=== PATIENT | female | born 1960 | race Two or more races ===

== ENCOUNTER 2024-12-17 16:25 | Emergency (ER) | payer MEDICAID, OTHER ==
[~2024-12-17] VITALS: Ht 162.6 cm; Wt 46.6 kg
--- NOTE | 2024-12-17 17:18 | DVH ---
COMPUTERIZED TOMOGRAPHY ABDOMEN AND PELVIS WITHOUT CONTRAST REASON FOR EXAM: flank pain COMPARISON: None TECHNIQUE: Spiral scans were acquired from the diaphragm to the symphysis pubis without intravenous c ontrast administration. 2-D coronal and sagittal reformatted images were provided. Radiation optimiza tion: All CT scans at this facility use at least one of these dose optimization techniques: Automated exposure control mA and/or kV adjustment per patient size (includes targeted exams where dose is mat ched to clinical indication) or iterative reconstruction. RADIATION DOSE: CTDI: 5.2 mGy DLP: 237.67 mGy-cm FINDINGS: The visualized lung bases are grossly clear. There is no pleural effusion. There is no pericardial e ffusion. The spleen is not enlarged. The liver is normal in size and contour. Evaluation of the abdo saud organs is suboptimal in the absence of intravenous contrast. Unenhanced appearance of the pancr eas is grossly unremarkable. No calcified gallstone is identified. The adrenal glands are normal. The kidneys are similar in size. There is no hydronephrosis of either kidney. No renal, ureteral, or bl adder calculus is identified. There is no abdominal aortic aneurysm. No free fluid is identified in t he abdomen or pelvis. There is no pathologic lymphadenopathy by size criteria. The uterus and ovari es are within normal limits. There is no pathologic distention of the small bowel. The colonic stool burden is moderate. The appendix is normal. The urinary bladder is grossly unremarkable. No acute os seous abnormality is identified. IMPRESSION: Moderate colonic stool burden. Correlate clinically for constipation. Normal appendix No renal, ureteral, or bladder calculus is identified. No hydronephrosis of either kidney.
--- NOTE | 2024-12-17 17:24 | ED.PDOC ---
General HPI Comments HPI: PMHx: Scoliosis, Prurigo Nodularis, Sclerosis PSHx: Double Bunectomy, Breast Augmentation SHx: Denies alcohol, tobacco use, or marijuana use Initial Vital Signs Temp: 97.7F RR: 16 SpO2: 96% HR: 80 BP: 146/86 HPI: Poor Historian. 64-year-old female presents to emergency department for acute on chronic right flank pain. She has a right flank pain with multiple kidney infections for the last two years. The patient has been on multiple antibiotics. She is currently on round two of Keflex. The patient denies any urinary symptoms. She complains of some mild right flank pain and right groin pain. She called 24 hour hotline doctor service who advised her to go to the ER. Patient denies any fever REVIEW OF SYSTEMS: CONSTITUTIONAL: Denies acute: fever, diaphoresis, chills, HEAD: Denies acute: headache, photophobia Eyes: Denies acute: Double vision, vision loss, eye pain, eye discharge. EARS: Denies acute: tinnitus, hearing loss, ear discharge, ear pain, THROAT: Denies acute: sore throat, swelling, difficulty swallowing , pain with swallowing, change in voice. NECK: Denies acute: neck pain, neck swelling, stiff neck. HEART: Denies acute : chest pain, palpitations, LUNGS: Denies acute: SOB, wheezing, cough, hemoptysis ABDOMEN: Denies acute: Vomiting, diarrhea, melena , hematemesis, hematochezia SKIN: Denies acute: rash, redness, lesions, itchiness. EXTREMITIES: Denies acute: calf pain, numbness, tingling, weakness, denies pain in extremity. Denies acute: Low back pain. Neuro: Denies acute: focal neurological deficit, motor or sensory focal neurological deficit, tremors, seizure like activity, confusion, dizziness, change in mental status, loss of bowel or bladder function, cauda equina like symptoms. : Denies acute: dysuria, hematuria, increase in urinary frequency. PSYCH: Denies acute: hallucination, suicidal ideation, homicidal ideation. FEMALE: Denies acute: abnormal vaginal bleeding, foul odor, unusual discharge. PHYSICAL EXAM: General: -----mild---acute distress, awake and alert. Head: normocephalic, atraumatic. Neck: supple, trachea is midline, no swelling. Throat: Normal phonation. Eyes:, no erythema, no purulent discharge, no proptosis, no icterus. Heart: regular rate, regular rhythm, no significant murmur appreciated. Lungs: no apparent respiratory distress, Able to speak in full sentences. No wheezing, no rhonchi, no crackles. No stridors Clear to auscultation bilaterally. Abdomen: Right lower quadrant tender to palpation, non distended, soft, no guarding, no rebound, + bowel sounds. Neuro: Awake, Alert, oriented to name, self, situation, follows commands GCS=15. Speech is normal. Skin: no petechia, no purpura, no cyanosis, non-pale, not jaundice. Lower extremities: --no - Pitting edema no deformity, no focal swelling, no calf TTP. Makes eye contact. moves all four extremities. Face: no apparent facial droop. Right CVA tenderness to percussion Ambulating in the ED independently. ED COURSE: DISCLAIMER: This medical document was created using an electronic medical record system with voice recognition software and computerized dictation system. Although this document has been carefully reviewed, there might still be some phonetic and typographical errors. Occasional wrong-word or "sound-alike" substitutions may have occurred due to the inherent limitations of voice recognition software. These areas are purely typographical due to imperfections of the software programs and do not reflect any compromise in the patient's medical care. Please read the chart carefully and recognize, using context, where these substitutions have occurred. Chief Complaint: Flank Pain Time Seen by MD: 17:05 Reviewed notes: Medications, Allergies Allergies: Coded Allergies: NO KNOWN ALLERGIES (Unverified , 12/17/24) Information Source: Patient Past Medical History INVESTIGATIONS CONSULTANT History: Denies all INVESTIGATIONS CONSULTANT Hx Family History Family History: Reviewed,noncontributory to illness Social History Smoker: Non-Smoker Alcohol: Denies ETOH Use Drugs: Denies Drug Use Lives In: Home Was a procedure done? Was a procedure done?: No X-Ray, Labs, Meds, VS Vital Signs Date Time Temp Pulse Resp B/P (MAP) Pulse Ox O2 Delivery O2 Flow Rate FiO2 12/17/24 17:44 98.7 8 16 141/75 (97) 100 98.7 12/17/24 17:44 81 16 100 Room Air 12/17/24 17:35 74 20 98 Room Air* 0 21 12/17/24 17:34 97.7 80 16 146/86 (106) 96 97.7 Lab Test 12/17/24 17:38 12/17/24 17:10 Range/Units White Blood Count 4.3 L 4.4-10.8 10^3/uL Red Blood Count 4.16 4.0-5.20 10^6/uL Hemoglobin 13.4 12.2-16.2 g/dL Hematocrit 39.6 36.0-46.0 % Mean Corpuscular Volume 95.3 80.0-100.0 fL Mean Corpuscular Hemoglobin 32.3 H 28.0-32.0 pg Mean Corpuscular Hemoglobin Concent 33.9 32.0-36.0 g/dL Red Cell Distribution Width 12.0 11.8-14.3 % Platelet Count 314 140-450 10^3/uL Mean Platelet Volume 7.0 6.9-10.8 fL Neutrophils (%) (Auto) 64.0 37.0-80.0 % Lymphocytes (%) (Auto) 22.6 10.0-50.0 % Monocytes (%) (Auto) 8.7 0.0-12.0 % Eosinophils (%) (Auto) 4.1 0.0-7.0 % Basophils (%) (Auto) 0.6 0.0-2.0 % Neutrophils # (Auto) 2.7 1.6-8.6 10 ^3/uL Lymphocytes # (Auto) 1.0 0.4-5.4 10 ^3/uL Monocytes # (Auto) 0.4 0-1.3 10 ^3/uL Eosinophils # (Auto) 0.2 0-0.8 10 ^3/uL Basophils # (Auto) 0 0-0.2 10 ^3/uL Nucleated Red Blood Cells 0.1 % Sodium Level 136 136-145 mmol/L Potassium Level 4.0 3.5-5.1 mmol/L Chloride Level 101 98-107 mmol/L Carbon Dioxide Level 27 20-31 mmol/L Anion Gap 8 5-15 Blood Urea Nitrogen 9 9-23 mg/dL Creatinine 0.77 0.550-1.02 mg/dL Glomerular Filtration Rate Calc 87 >90 mL/min BUN/Creatinine Ratio 11.7 10.0-20.0 Serum Glucose 98 74-106 mg/dL Lactic Acid Level 0.8 0.4-2.0 mmol/L Calcium Level 9.8 8.7-10.4 mg/dL Total Bilirubin 0.5 0.2-1.0 mg/dL Aspartate Amino Transferase (AST) 23 13-40 U/L Alanine Aminotransferase (ALT) Pending Alkaline Phosphatase 71 46-116 U/L Troponin I High Sensitivity < 3 L </=34 ng/L Total Protein 7.3 5.7-8.2 g/dL Albumin 5.1 H 3.2-4.8 g/dL Urine Color Colorless Yellow Urine Clarity Clear Clear Urine pH 6.5 5.0-9.0 Urine Specific [place] 1.003 1.001-1.035 Urine Protein Negative Negative Urine Ketones Negative Negative Urine Blood Negative Negative /uL Urine Nitrite Negative Negative Urine Bilirubin Negative Negative Urine Urobilinogen Normal Negative mg/dL Urine Leukocyte Esterase 2+ Negative /uL Urine RBC <1 0 - 4 /hpf Urine Microscopic WBC 4 0-5 /HPF Urine Squamous Epithelial Cells None seen <5 /hpf Urine Bacteria None seen None Seen /hpf Urine Glucose Normal Normal mg/dL Current Medications Medications (Trade) Dose Ordered Sig/Jason Route Start Time Stop Time Status Last Admin Sodium Chloride 1,000 ml @ 1,000 mls/hr Q1H ONCE IV 12/17/24 17:30 12/17/24 18:29 DC 12/17/24 17:45 Ondansetron HCl (Zofran) 8 mg ONCE ONCE IV 12/17/24 17:30 12/17/24 17:31 DC 12/17/24 17:44 Ceftriaxone Sodium 50 ml @ 100 mls/hr ONCE ONCE IV 12/17/24 17:30 12/17/24 17:59 DC 12/17/24 17:[address] [address] Ph: [phone] DIAGNOSTIC IMAGING Diagnostic Imaging Report : [id number] Signed PATIENT: NURIA RIVAS ACCT: [id number] UNIT: [id number] : 1960 LOC: ER ROOM / BED: / AGE / SEX: 64 / F ADM STATUS: REG ER SERVICE [id number] ORDERING PHYSICIAN: TAMARA MARTINEZ DO PROCEDURE(s): ABPL - CT AB PEL WO CON-NO ORAL OR IV REASON: flank pain ORDER NUMBER(s): [id number], ACCESSION NUMBER(s): [id number] COMPUTERIZED TOMOGRAPHY ABDOMEN AND PELVIS WITHOUT CONTRAST REASON FOR EXAM: flank pain COMPARISON: None TECHNIQUE: Spiral scans were acquired from the diaphragm to the symphysis pubis without intravenous contrast administration. 2-D coronal and sagittal reformatted images were provided. Radiation optimization: All CT scans at this facility use at least one of these dose optimization techniques: Automated exposure control mA and/or kV adjustment per patient size (includes targeted exams where dose is matched to clinical indication) or iterative reconstruction. RADIATION DOSE: CTDI: 5.2 mGy DLP: 237.67 mGy-cm FINDINGS: The visualized lung bases are grossly clear. There is no pleural effusion. There is no pericardial effusion. The spleen is not enlarged. The liver is normal in size and contour. Evaluation of the abdominal organs is suboptimal in the absence of intravenous contrast. Unenhanced appearance of the pancreas is grossly unremarkable. No calcified gallstone is identified. The adrenal glands are normal. The kidneys are similar in size. There is no hydronephrosis of either kidney. No renal, ureteral, or bladder calculus is identified. There is no abdominal aortic aneurysm. No free fluid is identified in the abdomen or pelvis. There is no pathologic lymphadenopathy by size criteria. The uterus and ovaries are within normal limits. There is no pathologic distention of the small bowel. The colonic stool burden is moderate. The appendix is normal. The urinary bladder is grossly unremarkable. No acute osseous abnormality is identi fied. IMPRESSION: Moderate colonic stool burden. Correlate clinically for constipation. Normal appendix No renal, ureteral, or bladder calculus is identified. No hydronephrosis of either kidney. Reevaluation 1ST: Improved Patient Education/Counseling: Diagnosis, Treatment Family Education/Counseling: No Family Present Departure 1 Departure Time of Disposition: 18:41 Impression: Primary Impression: Right flank pain Disposition: 01 HOME / SELF CARE / HOMELESS Condition: Stable Additional Instructions: Additional instructions: You MUST follow-up with your primary care/family doctor in 1 to 2 days. If you are unable to see your primary care/family doctor, please return to our emergency room for re-assessment and re-evaluation in 1 to 2 days. Return to the emergency room here in our facility or to the nearest ER [facility] if your symptoms change or worsen. CONSULTATIONS: you MUST Follow-up for consultation as soon as possible with: [facility] in 1-2 days. Please call for appointment. You MUST call the consultants office yourself to make an appointment. You may need to arrange that through your insurance and/or your primary/family doctor. If you are unable to see the security consultant in 1 to 2 days, you must return to our emergency room (or any other ER of your choice) for re-assessment and re- evaluation. Adequate fluid hydration. Below is a copy of your radiological report for follow up: [place] [address] Ph: [phone] DIAGNOSTIC IMAGING Diagnostic Imaging Report : [id number] Signed PATIENT: NURIA RIVAS ACCT: [id number] UNIT: [id number] : 1960 LOC: ER ROOM / BED: / AGE / SEX: 64 / F ADM STATUS: REG ER SERVICE 164 ORDERING PHYSICIAN: TAMARA MARTINEZ DO PROCEDURE(s): ABPL - CT AB PEL WO CON-NO ORAL OR IV REASON: flank pain ORDER NUMBER(s): [id number], ACCESSION NUMBER(s): [id number] COMPUTERIZED TOMOGRAPHY ABDOMEN AND PELVIS WITHOUT CONTRAST REASON FOR EXAM: flank pain COMPARISON: None TECHNIQUE: Spiral scans were acquired from the diaphragm to the symphysis pubis without intravenous contrast administration. 2-D coronal and sagittal reformatted images were provided. Radiation optimization: All CT scans at this facility use at least one of these dose optimization techniques: Automated exposure control mA and/or kV adjustment per patient size (includes targeted exams where dose is matched to clinical indication) or iterative reconstruction. RADIATION DOSE: CTDI: 5.2 mGy DLP: 237.67 mGy-cm FINDINGS: The visualized lung bases are grossly clear. There is no pleural effusion. There is no pericardial effusion. The spleen is not enlarged. The liver is normal in size and contour. Evaluation of the abdominal organs is suboptimal in the absence of intravenous contrast. Unenhanced appearance of the pancreas is grossly unremarkable. No calcified gallstone is identified. The adrenal glands are normal. The kidneys are similar in size. There is no hydronephrosis of either kidney. No renal, ureteral, or bladder calculus is identified. There is no abdominal aortic aneurysm. No free fluid is identified in the abdomen or pelvis. There is no pathologic lymphadenopathy by size criteria. The uterus and ovaries are within normal limits. There is no pathologic distention of the small bowel. The colonic stool burden is moderate. The appendix is normal. The urinary bladder is grossly unremarkable. No acute osseous abnormality is identified. IMPRESSION: Moderate colonic stool burden. Correlate clinically for constipation. Normal appendix No renal, ureteral, or bladder calculus is identified. No hydronephrosis of either kidney. ATED BY: OJHN SANCHEZ MD DICTATED DATE/TIME: 12/17/241715 SIGNED BY: JOHN SANCHEZ MD SIGNED DATE/TIME: 12/17/24 171 Discharged With: Self Critical Care Note Critical Care Time?: No I personally scribed for TAMARA MARTINEZ DO ([email or web address]) on 12/17/24 at 17:24. Electronically submitted by Yuriy López ([email or web address]). I personally scribed for TAMARA MARTINEZ DO ([email or web address]) on 12/17/24 at 18:18. Electronically submitted by Viri Cordoba (Wattage). I personally scribed for TAMARA MARTINEZ DO ([email or web address]) on 12/17/24 at 18:43. Electronically submitted by Viri Cordoba ([employer]att[employer]). TAMARA MARTINEZ DO Dec 17, 2024 17:24
[2024-12-17 17:35] VITALS: PULSE 74; RESP 20; O2SAT 98
[2024-12-17] MEDS: cefTRIAXone 1GM/50ML D5W 50 ML IV ONE (17:44)
[2024-12-17] MEDS: ONDANSETRON HCL 4 MG/2 ML VIAL IV ONE (17:44)
[2024-12-17] MEDS: SODIUM CHLORIDE 0.9% 1,000 ML IV ONE (17:45)
[2024-12-17 18:02] LABS: Hematocrit 39.6 % (36.0-46.0); Hemoglobin 13.4 g/dL (12.2-16.2); Mean Corpuscular Hemoglobin 32.3 pg (28.0-32.0); Mean Corpuscular Volume 95.3 fL (80.0-100.0); Nucleated Red Blood Cells % 0.1 %
[2024-12-17 18:03] LABS: Urine Protein, UAD Negative (Negative)
[2024-12-17 18:18] LABS: Alkaline Phosphatase 71 U/L (46-116); Anion Gap 8 (5-15); BUN/Creatinine Ratio 11.7 (10.0-20.0); Bilirubin, Total 0.5 mg/dL (0.2-1.0); Calcium 9.8 mg/dL (8.7-10.4); Carbon Dioxide 27 mmol/L (20-31); Chloride 101 mmol/L (98-107); Glucose 98 mg/dL (74-106); Potassium 4.0 mmol/L (3.5-5.1); Sodium 136 mmol/L (136-145); Total Protein 7.3 g/dL (5.7-8.2)
[2024-12-17 18:33] LABS: Albumin 5.1 g/dL (3.2-4.8); Blood Urea Nitrogen 9 mg/dL (9-23)
[2024-12-17 18:45] LABS: Alanine Aminotransferase 21 U/L (7-40)
[2024-12-17] MEDS: HYDROcodone-ACET 5/325MG TAB PO ONE (18:45)
[2024-12-17 19:38] VITALS: BP 148/71; PULSE 75; RESP 18; TEMP 97.9; O2SAT 93
== END 2024-12-17 19:53 | disposition home or self-care (01) ==
LOC: ER 16:25
DX: R10.31 Right lower quadrant pain (principal)
CPT/HCPCS: 36415; 74176; 80053; 81001; 83605; 84484; 85025; 87040; 96365; 96375; 99285; J0696; J2405; J7030